=== PATIENT | female | born 1970 | race Caucasian/White ===

== ENCOUNTER → 2021-06-29 13:38 | Outpatient (BNVA) | payer BC, SELFPAY | PROVIDERS: Family Provider Nurse Practitioner; PCP Nurse Practitioner; Visit Provider Nurse Practitioner Family | DX: R05.9 Cough, unspecified (principal) | CPT/HCPCS: 87400; 87635 ==

== ENCOUNTER → 2022-08-31 08:09 | Outpatient (BNVA) | payer BC, SELFPAY | PROVIDERS: Family Provider Nurse Practitioner; PCP Nurse Practitioner Family; Visit Provider Nurse Practitioner Family | DX: Z00.00 Encounter for general adult medical examination without abnormal findings (principal); I10 Essential (primary) hypertension; R73.9 Hyperglycemia, unspecified; E66.9 Obesity, unspecified; Z12.11 Encounter for screening for malignant neoplasm of colon; Z12.39 Encounter for other screening for malignant neoplasm of breast; Z78.0 Asymptomatic menopausal state | CPT/HCPCS: 80053; 80061; 81000; 82306; 82607; 83036; 83735; 84443; 85025 ==

== ENCOUNTER 2022-09-13 14:14 | Outpatient (CLI) | payer BC, SELFPAY ==
--- NOTE | 2022-09-13 14:28 | MM_ITS ---
WS: [id number] BILATERAL 3D TOMOSYNTHESIS DIGITAL SCREENING MAMMOGRAPHY WITH CAD CLINICAL INFORMATION: Z12.39 - Encounter for other screening for malignant neop... HISTORY: Screening mammogram. No current complaints. BASELINE TECHNIQUE: Bilateral CC and MLO views. FINDINGS: Scattered fibroglandular densities bilaterally. No suspicious focal mass, asymmetry, calcifications, or architectural distortion. No evidence of malignancy. Punctate and lucent centered calcifications. MM/[place] [id number] IMPRESSION: BI-RADS: 2-Benign FOLLOW UP: 1 Year Follow-up Recommend return to annual screening mammography.
--- NOTE | 2022-09-13 14:30 | XR_ITS ---
WS: [id number] DEXA (DUAL ENERGY X-RAY ABSORPTIOMETRY) Bone mineral density was performed using a Corthera machine. HISTORY: Z78.0 - Asymptomatic menopausal state COMPARISON: None available. Lumbar spine BMD (L1-L4): 1.374 g/cm2 T score: 1.6 Z score: 0.9 Total hip BMD: Left: 1.185 g/cm2. T score: 1.4 Z score: 1.1 Right: 1.207 g/cm2. T score: 1.6 Z score: 1.2 10 year probability of a major osteoporotic fracture is 3%. XR/XR DEXA axial skeleton* [id number] IMPRESSION: NORMAL BONE MINERAL DENSITY based upon the WHO classification for females.
== END 2022-09-13 14:15 | disposition home or self-care (01) ==
LOC: RAD 14:16
PROVIDERS: PCP Nurse Practitioner Family; Visit Provider Nurse Practitioner Family
DX: Z12.31 Encounter for screening mammogram for malignant neoplasm of breast (principal); Z13.820 Encounter for screening for osteoporosis; Z78.0 Asymptomatic menopausal state
CPT/HCPCS: 77063; 77067; 77080; 80053; 80061; 81000; 82306; 82607; 83036; 83735; 84443; 85025

== ENCOUNTER → 2022-09-25 09:33 | Outpatient (BNVA) | payer BC, SELFPAY | PROVIDERS: PCP Nurse Practitioner Family; Visit Provider Nurse Practitioner Family | DX: R39.9 Unspecified symptoms and signs involving the genitourinary system (principal) | CPT/HCPCS: 81003; 87077; 87086; 87184 ==

== ENCOUNTER → 2022-10-13 11:52 | Outpatient (BNVA) | payer BC, SELFPAY | PROVIDERS: PCP Nurse Practitioner Family; Visit Provider Nurse Practitioner Family | DX: N39.0 Urinary tract infection, site not specified (principal) | CPT/HCPCS: 87086 ==

== ENCOUNTER 2022-10-25 06:53 | Day surgery (SDC) | payer BC, SELFPAY ==
[2022-10-23 08:58] VITALS: BMI 45.6
[2022-10-25 07:22] VITALS: BP 148/90; PULSE 80; RESP 18; TEMP 37.1; O2SAT 98
[2022-10-25] MEDS: sodium chloride 0.9% 1,000 ML 30 ML IV (07:31)
[2022-10-25 07:35] LABS: Glucose Point of Care 117 mg/dL (70-110)
--- NOTE | 2022-10-25 08:03 | ANES.PREANE2 ---
Pre-Anesthetic Assessment Height/Weight: Height 1.65 m Weight 124.284 kg Temp Pulse Resp BP Pulse Ox O2 Del Method 98.8 F 80 18 148/90 98 Room Air 10/25/22 07:22 10/25/22 07:22 10/25/22 07:22 10/25/22 07:22 10/25/22 07:22 10/25/22 07:22 Operation Date: 10/25/22 08:30 Proposed Procedures p Colonoscopy 59654, Z12.11(Not Applicable) - Carlos Sheets DO Familial anesthetic complications: none Was Beta Odalys taken within 24 hours: N/A Was Clonidine taken within 24 hours: N/A Last intake: Intake Last Liquid Date 10/24/22 Last Liquid Time 18:00 Last Solid Date 10/23/22 Last Solid Time 18:00 Social No alcohol and No tobacco Exam alert, oriented x 3, clear to auscultation bilaterally and regular rate & rhythm Airway Submandibular: within normal limits Cervical ROM: within normal limits Mallampati: Class II Dentition: full CV/HEM Hypertension Metabolic Diabetes Mellitus, Hyperlipidemia and Morbid Obesity Anesthetic Plan ASA status: 3 Anesthesia: MAC Medications/Allergies Home Medications Medication Instructions Recorded Confirmed Last Taken Type loratadine 10 mg tablet (Claritin) 10 mg PO DAILY 08/31/22 10/23/22 10/23/22 History multivitamin (One Daily 1 tab PO DAILY 08/31/22 10/23/22 10/23/22 History Multivitamin tablet) atorvastatin 20 mg tablet 20 mg PO DAILY #90 tabs 09/08/22 10/23/22 10/23/22 Rx blood sugar diagnostic (Blood #50 ea 09/08/22 10/13/22 Unknown Rx Glucose Test strips) blood-glucose meter (Blood Glucose #1 ea 09/08/22 10/13/22 Unknown Rx Monitoring kit) lancets 33 gauge (BD Ultra Fine #100 ea 09/08/22 10/13/22 Unknown Rx Lancets) semaglutide 0.25 mg or 0.5 mg (2 See Rx Instructions SUBCUT 09/08/22 10/23/22 10/20/22 Rx mg/1.5 mL) subcutaneous pen .COMPLEX #1.5 mL injector (Ozempic) lisinopril 20 mg tablet 10 mg PO DAILY #30 tabs 09/15/22 10/23/22 10/23/22 Rx Allergies Allergy/AdvReac Type Severity Reaction Status Date / Time No Known Allergies Allergy Unverified 09/28/22 10:06 Current Medications Generic Name Dose Route Start Last Admin Trade Name Shakir PRN Reason Stop Dose Admin Sodium Chloride 1,000 mls @ 30 mls/hr 10/25/22 07:15 10/25/22 07:31 Sodium Chloride 0.9% IV 10/26/22 07:14 30 mls/hr .Q24H DILIA Administration PFSH Anesthesia Medical History No significant past medical history Type 2 diabetes mellitus Surgical History History of Hx of hysterectomy Family History Mother Diabetes Hypertension Father Diabetes Hypertension Social History Smoking and tobacco status: never smoked Second hand smoke exposure: No Smoking risk assessment/counseling performed?: No Alcohol intake: never Desire information about alcohol rehabilitation?: No Counseling given: No Substance/Drug Use: never Desire information about substance/drug rehabilitation?: No Counseling given: No Adopted: No Caregiver/support person: No Lives independently: Yes Household members: spouse Housing: House Marital status: Number of children: 3 Highest education level completed: High School Graduate service: No Data Anesthesia Cardiac Studies: No Data to Display
--- NOTE | 2022-10-25 08:50 | PM.HP ---
Providers/Chief Complaint Primary Care Provider: SARINA Boswell Chief Complaint: Z12.11 History of Present Illness Cassie Barfield is a 52 year old female who presents for a screening colonoscopy. She reports that her maternal grandfather had colon cancer. She denies any abdominal pain, nausea, emesis, diarrhea, constipation, hematochezia and/or melena. Medications/Allergies Home Medications Medication Instructions Recorded Confirmed Last Taken Type loratadine 10 mg tablet (Claritin) 10 mg PO DAILY 08/31/22 10/23/22 10/23/22 History multivitamin (One Daily 1 tab PO DAILY 08/31/22 10/23/22 10/23/22 History Multivitamin tablet) atorvastatin 20 mg tablet 20 mg PO DAILY #90 tabs 09/08/22 10/23/22 10/23/22 Rx blood sugar diagnostic (Blood #50 ea 09/08/22 10/13/22 Unknown Rx Glucose Test strips) blood-glucose meter (Blood Glucose #1 ea 09/08/22 10/13/22 Unknown Rx Monitoring kit) lancets 33 gauge (BD Ultra Fine #100 ea 09/08/22 10/13/22 Unknown Rx Lancets) semaglutide 0.25 mg or 0.5 mg (2 See Rx Instructions SUBCUT 09/08/22 10/23/22 10/20/22 Rx mg/1.5 mL) subcutaneous pen .COMPLEX #1.5 mL injector (Ozempic) lisinopril 20 mg tablet 10 mg PO DAILY #30 tabs 09/15/22 10/23/22 10/23/22 Rx Allergies Allergy/AdvReac Type Severity Reaction Status Date / Time No Known Allergies Allergy Unverified 09/28/22 10:06 PFSH Acute PFSH: Medical History No significant past medical history Type 2 diabetes mellitus Surgical History History of Hx of hysterectomy Family History Mother Diabetes Hypertension Father Diabetes Hypertension Social History Smoking and tobacco status: never smoked Second hand smoke exposure: No Smoking risk assessment/counseling performed?: No Alcohol intake: never Desire information about alcohol rehabilitation?: No Counseling given: No Substance/Drug Use: never Desire information about substance/drug rehabilitation?: No Counseling given: No Adopted: No Caregiver/support person: No Lives independently: Yes Household members: spouse Housing: House Marital status: Number of children: 3 Highest education level completed: High School Graduate service: No Vitals/I&O/Wt Last Vital Signs Temp 98.8 F 10/25/22 07:22 Pulse 80 10/25/22 07:22 Resp 18 10/25/22 07:22 BP 148/90 10/25/22 07:22 Pulse Ox 98 10/25/22 07:22 O2 Del Method Room Air 10/25/22 07:22 Weight last 48 hrs Weight 274 lb A&P Assessment and plan (1) Screening for colon cancer: Plan Colonoscopy The risks and benefits of the procedure, including bleeding, infection, intestinal perforation requiring surgery, missed lesion were explained to the patient. The patient is understanding of the risks and wishes to proceed. Attestations Medical Necessity Statement*: Home Coding Level of Care Code Acute Code for Chg Fwd Diagnoses Screening for colon cancer Z12.11
[2022-10-25 09:16] VITALS: BP 130/80; PULSE 78; RESP 16; TEMP 36.2; O2SAT 93
[2022-10-25 09:21] VITALS: BP 110/70; PULSE 89; RESP 18; O2SAT 96
[2022-10-25 09:31] VITALS: BP 108/69; PULSE 81; RESP 18; O2SAT 95
--- NOTE | 2022-10-25 17:32 | ANE.PACU2 ---
Inpatient post-anesthesia follow up: Airway intact: Yes Vital signs: Temperature 97.2 F Pulse Rate 81 Respiratory Rate 18 Blood Pressure 108/69 Pulse Oximetry 95 Oxygen Delivery Me thod Room Air Oxygen Flow Rate 3 Fraction of Inspir ed Oxygen Hydration adequate: Yes Nausea and vomiting: No Pain level: 2 Mental status: Baseline
== END 2022-10-25 09:50 | disposition home or self-care (01) ==
PROVIDERS: PCP Nurse Practitioner Family; Visit Provider Surgery
PROC: 0DJD8ZZ Inspection of Lower Intestinal Tract, Via Natural or Artificial Opening Endoscopic (ICD-10-PCS; CPT 45378; principal; 2022-10-25 08:30)
DX: Z80.0 Family history of malignant neoplasm of digestive organs (principal); Z12.11 Encounter for screening for malignant neoplasm of colon; E11.9 Type 2 diabetes mellitus without complications; E78.5 Hyperlipidemia, unspecified; E66.01 Morbid (severe) obesity due to excess calories; Z68.42 Body mass index [BMI] 45.0-49.9, adult
CPT/HCPCS: 36416; 43249; 45378; 82962; J2704; J7030

== ENCOUNTER → 2022-11-20 09:10 | Outpatient (BNVA) | payer BC, SELFPAY | PROVIDERS: PCP Nurse Practitioner Family; Visit Provider Nurse Practitioner Family | DX: E11.9 Type 2 diabetes mellitus without complications (principal); I10 Essential (primary) hypertension; E78.5 Hyperlipidemia, unspecified; J30.9 Allergic rhinitis, unspecified | CPT/HCPCS: 80053; 80061; 83036; 85025 ==

== ENCOUNTER → 2023-03-23 09:00 | Outpatient (BNVA) | payer BC, SELFPAY | PROVIDERS: PCP Nurse Practitioner Family; Visit Provider Nurse Practitioner Family | DX: E11.9 Type 2 diabetes mellitus without complications (principal); E04.1 Nontoxic single thyroid nodule; E78.5 Hyperlipidemia, unspecified | CPT/HCPCS: 80053; 80061; 82043; 82607; 83036; 84439; 84443; 85025 ==

== ENCOUNTER 2023-04-03 14:27 | Outpatient (CLI) | payer BC, SELFPAY ==
--- NOTE | 2023-04-03 14:45 | US_ITS ---
WS: [id number] ULTRASOUND THYROID TECHNIQUE: Ultrasound of the thyroid. CLINICAL INFORMATION: E04.1 - Nontoxic single thyroid nodule COMPARISON: Ultrasound 2017 FINDINGS: Thyroid: Right and left thyroid lobes are normal in size and echotexture. Right thyroid lobe: 5.8 cm x 2.2 cm x 1.6 cm Cystic lesion RIGHT mid thyroid measuring 8.6 x 6.6 x 9.5 mm similar in appearance to previous. Imagi ng characteristics compatible with colloid cyst. Left thyroid lobe: 5.9 cm x 1.6 cm x 1.9 cm. Small cystic lesion LEFT mid thyroid measuring 5 mm. This is similar to previous. A few additional ti ny incidental colloid cysts. Isthmus: 0.4 mm. Cervical lymphadenopathy: None. IMPRESSION: 1. Cystic lesion RIGHT thyroid with echogenic foci demonstrating ringdown artifact compatible with c olloid cyst. 2. Additional tiny bilateral colloid cysts 3. No new or suspicious nodules.
== END 2023-04-03 14:28 | disposition home or self-care (01) ==
PROVIDERS: PCP Nurse Practitioner Family; Visit Provider Nurse Practitioner Family
DX: E04.1 Nontoxic single thyroid nodule (principal); E07.9 Disorder of thyroid, unspecified
CPT/HCPCS: 76536

== ENCOUNTER → 2023-08-07 10:01 | Outpatient (BNVA) | payer BC, SELFPAY | PROVIDERS: PCP Nurse Practitioner Family; Visit Provider Nurse Practitioner Family | DX: E11.9 Type 2 diabetes mellitus without complications (principal) | CPT/HCPCS: 80053; 80061; 83036; 84443; 85025 ==

== ENCOUNTER → 2023-08-20 15:30 | Outpatient (BNVA) | payer BC, SELFPAY | PROVIDERS: PCP Nurse Practitioner Family; Visit Provider Nurse Practitioner Family | DX: J02.9 Acute pharyngitis, unspecified (principal) | CPT/HCPCS: 80076; 86308 ==

== ENCOUNTER → 2024-03-26 14:50 | Outpatient (BNVA) | payer MEDICAID, SELFPAY | PROVIDERS: PCP Nurse Practitioner Family; Visit Provider Nurse Practitioner Family | DX: E11.65 Type 2 diabetes mellitus with hyperglycemia (principal) | CPT/HCPCS: 80053; 80061; 83036; 84443; 85025 ==

== ENCOUNTER 2024-06-03 09:00 | Outpatient (CLI) | payer MEDICAID, SELFPAY ==
--- NOTE | 2024-06-03 09:00 | MM_ITS ---
WS: [id number] Bilateral screening 3D tomosynthesis digital mammogram, 06/03/2024 9:07 AM Clinical Data: Z12.39 - Encounter for other screening for malignant neop... Comparison: 09/13/2022 Findings: No spiculated masses or clustered calcifications are seen. There are no secondary signs of carcinoma . There are scattered benign calcifications throughout the breasts. MM/MM scr BI tomosynthesis [id number] Impression: Negative bilateral mammogram unchanged. Recommend annual screening mammograms. BIRADS: 1 - Negative. FOLLOW UP: 1 Year Follow-up DENSITY: There are scattered areas of fibroglandular density. The CAD motor checker was used
== END 2024-06-03 09:01 | disposition home or self-care (01) ==
LOC: MOBLMAM 09:01
PROVIDERS: PCP Nurse Practitioner Family; Visit Provider Nurse Practitioner Family
DX: Z12.31 Encounter for screening mammogram for malignant neoplasm of breast (principal); R92.1 Mammographic calcification found on diagnostic imaging of breast
CPT/HCPCS: 77063; 77067

== ENCOUNTER → 2024-08-25 09:20 | Outpatient (BNVA) | payer MEDICAID, SELFPAY | PROVIDERS: PCP Nurse Practitioner Family; Visit Provider Nurse Practitioner Family | DX: E11.65 Type 2 diabetes mellitus with hyperglycemia (principal); E11.9 Type 2 diabetes mellitus without complications; E78.5 Hyperlipidemia, unspecified | CPT/HCPCS: 80053; 80061; 82043; 83036; 84443; 85025 ==

== ENCOUNTER → 2024-12-01 08:35 | Outpatient (BNVA) | payer MEDICAID, SELFPAY | PROVIDERS: PCP Nurse Practitioner Family; Visit Provider Nurse Practitioner Family | DX: E11.65 Type 2 diabetes mellitus with hyperglycemia (principal) | CPT/HCPCS: 80053; 80061; 83036; 85025 ==

== ENCOUNTER → 2025-04-29 11:20 | Outpatient (BNVA) | payer MEDICAID, SELFPAY | PROVIDERS: PCP Nurse Practitioner Family; Visit Provider Nurse Practitioner Family | DX: E11.65 Type 2 diabetes mellitus with hyperglycemia (principal) | CPT/HCPCS: 80053; 80061; 83036; 85025 ==